=== PATIENT | female | born 2000 | race Two or more races ===

== ENCOUNTER 2022-01-01 19:48 | Emergency (ER) | payer MEDICAID, OTHER ==
[~2022-01-01] VITALS: Ht 157.5 cm; Wt 81.6 kg
--- NOTE | 2022-01-01 20:20 | NUR ---
BIBRA 89 FOR ANXIETY ATTACK. PLACED ON BED, [id number]
--- NOTE | 2022-01-01 20:22 | NUR ---
AT BED SIDE
[2022-01-01] MEDS ORDERED: LORAZEPAM 1 MG TABLET PO ONE (20:30)
[2022-01-01] MEDS ORDERED: LORAZEPAM 1 MG TABLET ONE (20:44)
[2022-01-01] MEDS ORDERED: IBUPROFEN 600 MG TABLET ONE (21:17)
--- NOTE | 2022-01-01 21:20 | NUR ---
IV removed. Catheter intact and site benign. Pressure and 4x4 applied to site. No bleeding noted.Patient discharged to home in stable condition. Written and verbal after care instructions given. Patient verbalizes understanding of instruction.
[2022-01-01 21:29] VITALS: BP 120/70
[2022-01-01] MEDS ORDERED: IBUPROFEN 600 MG TABLET PO ONE (21:30)
== END 2022-01-01 21:20 | disposition home or self-care (01) ==
LOC: ER 19:50
DX: F41.9 Anxiety disorder, unspecified (principal); J45.909 Unspecified asthma, uncomplicated; Z88.8 Allergy status to other drugs, medicaments and biological substances